=== PATIENT | female | born 1950 | race Caucasian/White ===

== ENCOUNTER 2016-10-09 20:21 | Emergency (ER) | payer MEDICARE ==
[2016-10-09] MEDS ORDERED: Acetaminophen TAB* 325 MG PO ONE (21:07)
[2016-10-09] MEDS ORDERED: NS 0.9% 1000 ML* 1,000 ML IV ONE (21:07)
--- NOTE | 2016-10-09 21:54 | RAD ---
INDICATION: Fever, chills, body aches. COMPARISON: August 19, 2016 TECHNIQUE: Dual energy PA and routine lateral views of the chest were obtained. REPORT: Tip of LEFT chest port at level of superior vena cava RIGHT atrial junction. Tip of RIGHT upper extremity PICC at level of superior vena cava. Elevated lung volumes with increased AP thoracic diameter. No alveolar consolidation, focal pulmonary lesion, pleural effusion, pneumothorax. Mild thoracic degenerative spondylosis. IMPRESSION: No evidence for pneumonia.
--- NOTE | 2016-10-09 22:05 | ED ---
Alondra Vallecillo Claudia, scribed for Ghassan Howard MD on 10/09/16 at 2109 . Complex/Multi-Sys Presentation - HPI Summary HPI Summary: 66 year old female presents to the ED with fever, chills and malaise after infusion earlier today. Pt denies ever having a similar reaction to the infusion and she has had about 12. Pt received infusions every week. She admits to fever 101F, chills, and malaise. Pt denies N/V/D. Pt has a UTD flu shot. Pt recievd infusions fue to gastroparesis. - History Of Current Complaint Chief Complaint: EDFever Time Seen by Provider: 10/09/16 21:02 Hx Obtained From: Patient Onset/Duration: Sudden Onset, Lasting Hours, Still Present Timing: Constant Associated Signs And Symptoms: Positive: Dysuria, Fever, Other - chills, mal. Negative: Nausea, Vomiting, Diarrhea - chills, maliase - Allergies/Home Medications Allergies/Adverse Reactions: Allergies Allergy/AdvReac Type Severity Reaction Status Date / Time Penicillins Allergy Severe Hives Verified 09/12/16 08:37 Adhesive Tape Allergy Mild See Comment Verified 09/12/16 08:37 [Tegaderm Dressing] Bee Venom Allergy Anaphylatic Verified 09/12/16 08:37 Shock Milnacipran [From Savella] AdvReac Severe See Comment Verified 09/12/16 08:37 Morphine AdvReac Intermediate Hallucinati Verified 09/12/16 08:37 ons Nortriptyline AdvReac Unknown Unknown Verified 09/12/16 08:37 Reaction Details Pregabalin [From Lyrica] AdvReac Altered Verified 09/12/16 08:37 Mental Status Tapentadol [From Nucynta] AdvReac Agitation Verified 09/12/16 08:37 bee stings Allergy Severe Anaphylatic Uncoded 09/12/16 08:37 Shock adhesives Allergy Intermediate Rash Uncoded 09/12/16 08:37 PMH/Surg Hx/FS Hx/Imm Hx Previously Healthy: Yes Endocrine/Hematology History: Denies: Hx Diabetes, Hx Anemia, Hx Unexplained Bleeding Cardiovascular History: Reports: Hx Cardiac Arrest - stopped breathing from IV pain medicine, Hx Hypercholesterolemia - not currently Denies: Hx Aneurysm, Hx Angina, Hx Angioplasty, Hx Auto Implanted Cardiovert Defib, Hx Cardiomegaly, Hx Congenital Heart Disease, Hx Congestive Heart Failure , Hx Coronary Artery Disease, Hx Deep Vein Thrombosis, Hx Embolism, Hx Hypotension, Hx Hypertension, Hx Myocardial Infarction, Hx Pacemaker/ICD, Hx Peripheral Vascular Disease, Hx Rheumatic Fever, Hx Syncope, Hx Valvular Heart Disease, Other Cardiovascular Problems/Disorders Respiratory History: Reports: Hx Sleep Apnea Denies: Hx Asthma, Hx Chronic Bronchitis, Hx Chronic Obstructive Pulmonary Disease (COPD), Hx Cystic Fibrosis, Hx Lung Cancer, Hx Pleural Effusion, Hx Pneumonia, Hx Pulmonary Edema, Hx Pulmonary Embolism, Hx Seasonal Allergies, Other Respiratory Problems/Disorders GI History: Reports: Hx Gastroesophageal Reflux Disease, Hx Gastrointestinal Bleed, Hx Hiatal Hernia, Hx Irritable Bowel, Hx Obstructive Bowel, Other GI Disorders - gastroparesis Denies: Hx Cirrhosis, Hx Crohn's Disease, Hx Diverticulosis, Hx Gall Bladder Disease, Hx Jaundice, Hx Ileostomy, Hx Pyloric Stenosis, Hx Ulcer History: Reports: Hx Kidney Infection - March 2013, Other Problems/ Disorders - frequent uti's Denies: Hx Dialysis, Hx Renal Disease Musculoskeletal History: Reports: Hx Back Problems, Hx Fibromyalgia, Hx Orthopedic Injury - mandible fracture Denies: Hx Arthritis, Hx Bursitis, Hx Congenital Bone Abnormalities, Hx Gout , Hx Osteoporosis, Hx Scoliosis, Hx Tendonitis, Other Musculoskeletal History Sensory History: Reports: Hx Cataracts - Surgery to remove cataracts, Hx Contacts or Glasses - for reading only Denies: Hx Eye Injury, Hx Eye Prosthesis, Hx Glaucoma, Hx Legally Blind, Hx Macular Degeneration, Hx Vision Problem, Hx Deafness, Hx Hearing Aid, Hx Hearing Problem, Other Sensory Impairments Opthamlomology History: Reports: Hx Cataracts - Surgery to remove cataracts, Hx Contacts or Glasses - for reading only Denies: Hx Eye Injury, Hx Eye Prosthesis, Hx Glaucoma, Hx Legally Blind, Hx Macular Degeneration, Hx Vision Problem, Other Sensory Impairments Neurological History: Reports: 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, Other Neuro Impairments/Disorders - autonomic neuropathy Denies: Hx Dementia, Hx Developmental Delay, Hx Headaches, Hx Migraine, Hx Nerve Disease, Hx Transient Ischemic Attacks (TIA) Psychiatric History: Reports: Hx Anxiety, Hx Depression, Hx Community Mental Health Tx Denies: Hx Panic Disorder - Cancer History Hx Chemotherapy: No Hx Radiation Therapy: No - Surgical History Surgery Procedure, Year, and Place: SEVERAL SX'S FOR SMALL BOWEL OBSTRUCTIONS, ADHESIONS, APPENDECTOMY; POWER PORT IN CHEST WALL -2009, replaced 2010 (still has); CATARACTS 2003; BIOPSY TEMPORAL ARTERY 2009; BREAST REDUCTION 2005; HYSTERECTOMY 1991;. SLAP[place]O OOPHERECTOMY 1999; CARDIAC CATHERIZATION 2008; URETHRAL SLING x3 AND RECTOCELE REPAIR 2007; COLECTOMY 11/2002 REVISION 02/2003; PANNUICULECTOMY WITH ABDOMINAL SCAR REVISION 2008; Placement of J-tube and lysis of adhesions Jun 12, 2016 @ [facility]; Late June [place] [place] Interstim II Implant S-3 nerve stimulation 04/2008;removal of stim (10/14); Dupytrons Contracture R hand ; Hernia Repair with [place]-Davi ; Abdominal scar revision 10/13; Hx Anesthesia Reactions: No - Immunization History Date of Tetanus Vaccine: unknown Date of Influenza Vaccine: 2013 Infectious Disease History: No Infectious Disease History: Denies: Hx Clostridium Difficile, Hx Hepatitis, Hx Human Immunodeficiency Virus (HIV), Hx of Known/Suspected MRSA, Hx Shingles, Hx Tuberculosis, Hx Known/ Suspected VRE, Hx Known/Suspected VRSA, History Other Infectious Disease, Traveled Outside the [place] in Last 30 Days - Family History Known Family History: Positive: Other - mother - PE Negative: Diabetes - Social History Occupation: Disabled Lives: With Family Alcohol Use: None Hx Substance Use: No Substance Use Type: Reports: None Substance Use Comment - Amount & Last Used: PT STARTED WITHDRAWAL FROM OPIATES IN 2013 Hx Tobacco Use: No Smoking Status (MU): Never Smoked Tobacco Have You Smoked in the Last Year: No Review of Systems Positive: Fever, Chills, Other - malaise Eyes: Negative ENT: Negative Cardiovascular: Negative Respiratory: Negative Gastrointestinal: Negative Negative: Vomiting, Diarrhea, Nausea Genitourinary: Negative Positive: dysuria Musculoskeletal: Negative Skin: Negative Neurological: Negative Psychological: Normal All Other Systems Reviewed And Are Negative: Yes Physical Exam Triage Information Reviewed: Yes Vital Signs On Initial Exam: Initial Vitals Temp Pulse Resp BP Pulse Ox 101.6 F 91 16 155/73 100 10/09/16 20:24 10/09/16 20:24 10/09/16 20:24 10/09/16 20:24 10/09/16 20:24 Vital Signs Reviewed: Yes Appearance: Positive: Well-Appearing, No Pain Distress Skin: Positive: Warm Head/Face: Positive: Normal Head/Face Inspection Eyes: Positive: FLORENCIO ENT: Positive: Hearing grossly normal, Pharynx normal Neck: Positive: Supple, Nontender Respiratory/Lung Sounds: Positive: Clear to Auscultation, Breath Sounds Present Cardiovascular: Positive: Normal Abdomen Description: Positive: Nontender, No Organomegaly, Soft Bowel Sounds: Positive: Present Musculoskeletal: Positive: Normal, Strength/ROM Intact Neurological: Positive: Normal Psychiatric: Positive: Normal Diagnostics - Vital Signs Vital Signs Temp Pulse Resp BP Pulse Ox 10/09/16 20:24 101.6 F 91 16 155/73 100 - Laboratory Result Diagrams: 10/09/16 21:40 10/09/16 21:40 Lab Statement: Any lab studies that have been ordered have been reviewed, and results considered in the medical decision making process. - Radiology CHEST XRAY Xray Interpretation: No Acute Changes - NO EVIDENCE FOR PNEUMONIA Radiology Interpretation Completed By: Radiologist Re-Evaluation - Re-Evaluation First Eval Change: Improved Complex Multi-Symp Course/Dx Assessment/Plan: Pt presents with fever and chills suddne onset today. After work-up with normal limits. Pt is agreeable with plan to be discharged home with follow-up with PCP this week. - Diagnoses Provider Diagnoses: Fever Discharge - Discharge Plan Condition: Stable Disposition: HOME Patient Education Materials: Fever in Adults (ED) Referrals: Mikala Calixto MD [Primary Care Provider] - 2 Days (Please follow-up. ) The documentation as recorded by the Alondra melchor Claudia accurately reflects the service I personally performed and the decisions made by , Ghassan Howard MD.
[2016-10-09] MEDS ORDERED: Ketorolac INJ* 30 MG/ML 1 ML VIAL IV PUSH ONE (22:07)
[2016-10-09 22:08] LABS: Hematocrit 32 % (35-47); Hemoglobin 10.4 g/dl (12.0-16.0); Mean Corpuscular HGB Conc 33 g/dl (31-36); Mean Corpuscular Hemoglobin 28 pg (27-31); Mean Corpuscular Volume 84 fL (80-97); Mean Platelet Volume 10 um3 (7.4-10.4); Red Blood Count 3.76 10^6/ul (4.0-5.4); Red Cell Distribution Width 14 % (10.5-15)
[2016-10-09 22:10] LABS: Comments Flag Yes; White Blood Count 3.3 10^3/ul (3.5-10.8)
[2016-10-09 22:11] LABS: Add Diff/Slide Review? Slide Review Added
[2016-10-09 22:26] LABS: Albumin 3.6 g/dL (3.2-5.2); BUN/Creatinine Ratio 20.5 (8-20); Calcium 8.9 mg/dL (8.6-10.3); EGFR African American 88.5 (>60); EGFR Non-African American 68.8 (>60); Globulin 4.6 g/dL (2-4); Total Bilirubin 0.3 mg/dL (0.2-1.0); Total Protein 8.2 g/dL (6.4-8.9)
[2016-10-09 23:04] LABS: Urine Bilirubin Negative (Negative); Urine Glucose 1+(50 mg/dL) (Negative); Urine Nitrite Negative (Negative)
[2016-10-10 00:19] VITALS: BP 110/67
--- NOTE | 2016-10-12 07:39 | ED ---
Progress - Progress Note Progress Note: pt seen on 10/09/2016 for fever - blood cx results have returned w/ neg MRSA, STAPH AERUES however she has findings of staph epidermis on a preliminary study - this is most likely a contaminant as spoke w/ pt and she is still tired but improving. Temps have been better, 99.7F at the highest. Explained results and that if she feels worse, needs to return to ED. Otherwise will f/u w/ PCP as directed. Re-Evaluation - Re-Evaluation First Eval Change: Improved Course/Dx - Diagnoses Provider Diagnoses: Fever
== END 2016-10-10 00:18 | disposition home or self-care (01) ==
LOC: ED 20:21
DX: R50.9 Fever, unspecified (principal); R30.0 Dysuria
CPT/HCPCS: 36415; 71020; 80053; 81003; 83605; 83735; 85025; 87040; 87077; 87150; 87186; 87205; 87502; 96374; 99284; A9270-GY; J1885

== ENCOUNTER 2016-10-10 13:32 | Emergency (ER) | payer MEDICARE ==
--- NOTE | 2016-10-10 18:34 | RAD ---
INDICATION: Fever. Positive blood culture. COMPARISON: October 09, 2016 TECHNIQUE: Dual energy PA and routine lateral views of the chest were obtained. REPORT: Unchanged RIGHT upper extremity PICC and LEFT chest port. Elevated lung volumes. Clear lungs and visualized pleural spaces. The caudal margin of the LEFT pleural space is incompletely included in the [id number]. The heart, pulmonary vasculature, and mediastinal contours are unremarkable. IMPRESSION: Stigmata of probable chronic obstructive pulmonary disease. No evidence for pneumonia.
[2016-10-10] MEDS ORDERED: Vancomycin(*) 1,000 MG in NS 0.9% 250 ML* 250 ML IVPB ONE (19:30)
--- NOTE | 2016-10-10 20:45 | ED ---
Valencia Vallecillo Rebecca, scribed for Clyde Bianchi MD on 10/10/16 at 1648 . HPI Febrile Illness - HPI Summary HPI Summary: Pt is a 66 y/o F who presents to ED after being referred by her PCP (Dr. Navarro) for positive blood cultures. Pt was evaluated by [facility] [place] last night p/ w fever, chills and fatigue that had been present for 2 days. Blood cultures were sent to the lab and she was d/c to home. Her PCP called this morning, informing pt that cultures are positive and to return to the ED immediately. Pt has a PICC line and a port. PICC is in place to provide nutrition due to inability to tolerate food per Os. Is not currently on a course of Abx. PMHx autoimmune disorder for which she receives IVIG transfusions. - History of Current Complaint Chief Complaint: EDGeneral Time Seen by Provider: 10/10/16 16:31 Hx Obtained From: Patient Onset/Duration: Started Days Ago - 2 days ago Time of Onset: 08:00 Pain Intensity: 7 Pain Scale Used: 0-10 Numeric Associated Signs and Symptoms: Chills, Other: - Fatigue, positive blood cultures - Additional Pertinent History Primary Care Physician: [id number] - Allergy/Home Medications Allergies/Adverse Reactions: Allergies Allergy/AdvReac Type Severity Reaction Status Date / Time Penicillins Allergy Severe Hives Verified 10/10/16 09:03 Adhesive Tape Allergy Mild See Comment Verified 10/10/16 09:03 [Tegaderm Dressing] Bee Venom Allergy Anaphylatic Verified 10/10/16 09:03 Shock Milnacipran [From Savella] AdvReac Severe See Comment Verified 10/10/16 09:03 Morphine AdvReac Intermediate Hallucinati Verified 10/10/16 09:03 ons Nortriptyline AdvReac Unknown Unknown Verified 10/10/16 09:03 Reaction Details Pregabalin [From Lyrica] AdvReac Altered Verified 10/10/16 09:03 Mental Status Tapentadol [From Nucynta] AdvReac Agitation Verified 10/10/16 09:03 bee stings Allergy Severe Anaphylatic Uncoded 09/12/16 08:37 Shock adhesives Allergy Intermediate Rash Uncoded 09/12/16 08:37 PMH/Surg Hx/FS Hx/Imm Hx Endocrine/Hematology History: Reports: Autoimmune Disease Denies: Hx Diabetes, Hx Anemia, Hx Unexplained Bleeding Cardiovascular History: Reports: Hx Cardiac Arrest - stopped breathing from IV pain medicine, Hx Hypercholesterolemia - not currently Denies: Hx Aneurysm, Hx Angina, Hx Angioplasty, Hx Auto Implanted Cardiovert Defib, Hx Cardiomegaly, Hx Congenital Heart Disease, Hx Congestive Heart Failure , Hx Coronary Artery Disease, Hx Deep Vein Thrombosis, Hx Embolism, Hx Hypotension, Hx Hypertension, Hx Myocardial Infarction, Hx Pacemaker/ICD, Hx Peripheral Vascular Disease, Hx Rheumatic Fever, Hx Syncope, Hx Valvular Heart Disease, Other Cardiovascular Problems/Disorders Respiratory History: Reports: Hx Sleep Apnea Denies: Hx Asthma, Hx Chronic Bronchitis, Hx Chronic Obstructive Pulmonary Disease (COPD), Hx Cystic Fibrosis, Hx Lung Cancer, Hx Pleural Effusion, Hx Pneumonia, Hx Pulmonary Edema, Hx Pulmonary Embolism, Hx Seasonal Allergies, Other Respiratory Problems/Disorders GI History: Reports: Hx Gastroesophageal Reflux Disease, Hx Gastrointestinal Bleed, Hx Hiatal Hernia, Hx Irritable Bowel, Hx Obstructive Bowel, Other GI Disorders - gastroparesis Denies: Hx Cirrhosis, Hx Crohn's Disease, Hx Diverticulosis, Hx Gall Bladder Disease, Hx Jaundice, Hx Ileostomy, Hx Pyloric Stenosis, Hx Ulcer History: Reports: Hx Kidney Infection - March 2013, Other Problems/ Disorders - frequent uti's Denies: Hx Dialysis, Hx Renal Disease Musculoskeletal History: Reports: Hx Back Problems, Hx Fibromyalgia, Hx Orthopedic Injury - mandible fracture Denies: Hx Arthritis, Hx Bursitis, Hx Congenital Bone Abnormalities, Hx Gout , Hx Osteoporosis, Hx Scoliosis, Hx Tendonitis, Other Musculoskeletal History Sensory History: Reports: Hx Cataracts - Surgery to remove cataracts, Hx Contacts or Glasses - for reading only Denies: Hx Eye Injury, Hx Eye Prosthesis, Hx Glaucoma, Hx Legally Blind, Hx Macular Degeneration, Hx Vision Problem, Hx Deafness, Hx Hearing Aid, Hx Hearing Problem, Other Sensory Impairments Opthamlomology History: Reports: Hx Cataracts - Surgery to remove cataracts, Hx Contacts or Glasses - for reading only Denies: Hx Eye Injury, Hx Eye Prosthesis, Hx Glaucoma, Hx Legally Blind, Hx Macular Degeneration, Hx Vision Problem, Other Sensory Impairments Neurological History: Reports: 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, Other Neuro Impairments/Disorders - autonomic neuropathy Denies: Hx Dementia, Hx Developmental Delay, Hx Headaches, Hx Migraine, Hx Nerve Disease, Hx Transient Ischemic Attacks (TIA) Psychiatric History: Reports: Hx Anxiety, Hx Depression, Hx Community Mental Health Tx Denies: Hx Panic Disorder - Cancer History Hx Chemotherapy: No Hx Radiation Therapy: No - Surgical History Surgery Procedure, Year, and Place: SEVERAL SX'S FOR SMALL BOWEL OBSTRUCTIONS, ADHESIONS, APPENDECTOMY; POWER PORT IN CHEST WALL -2009, replaced 2010 (still has); CATARACTS 2003; BIOPSY TEMPORAL ARTERY 2009; BREAST REDUCTION 2005; HYSTERECTOMY 1991;. SLAP[place]O OOPHERECTOMY 1999; CARDIAC CATHERIZATION 2008; URETHRAL SLING x3 AND RECTOCELE REPAIR 2007; COLECTOMY 11/2002 REVISION 02/2003; PANNUICULECTOMY WITH ABDOMINAL SCAR REVISION 2008; Placement of J-tube and lysis of adhesions Jun 12, 2016 @ [facility]; Late June J-tube infection and removal June 2016, @[facility] [place]; Interstim II Implant S-3 nerve stimulation 04/2008;removal of stim (10/14); Dupytrons Contracture R hand ; Hernia Repair with [place]-Davi ; Abdominal scar revision 10/13; Hx Anesthesia Reactions: No - Immunization History Date of Tetanus Vaccine: unknown Date of Influenza Vaccine: 2013 Infectious Disease History: No Infectious Disease History: Denies: Hx Clostridium Difficile, Hx Hepatitis, Hx Human Immunodeficiency Virus (HIV), Hx of Known/Suspected MRSA, Hx Shingles, Hx Tuberculosis, Hx Known/ Suspected VRE, Hx Known/Suspected VRSA, History Other Infectious Disease, Traveled Outside the [place] in Last 30 Days - Family History Known Family History: Positive: Other - mother - PE Negative: Diabetes - Social History Alcohol Use: None Hx Substance Use: No Substance Use Type: Reports: None Substance Use Comment - Amount & Last Used: PT STARTED WITHDRAWAL FROM OPIATES IN 2013 Hx Tobacco Use: No Smoking Status (MU): Never Smoked Tobacco Have You Smoked in the Last Year: No Review of Systems Positive: Fever, Chills, Fatigue, Other - Positive blood culture results Eyes: Negative Cardiovascular: Negative Respiratory: Negative Gastrointestinal: Negative Genitourinary: Negative Musculoskeletal: Negative Skin: Negative Neurological: Negative Psychological: Normal All Other Systems Reviewed And Are Negative: Yes Physical Exam - Summary Physical Exam Summary: VITAL SIGNS: Reviewed. GENERAL: Patient is a well developed and nourished female who is lying comfortable in the stretcher. Patient is not in any acute respiratory distress. HEAD AND FACE: No signs of trauma. No ecchymosis, hematomas or skull depressions. No sinus tenderness. EYES: PERRLA, EOMI x 2, No injected conjunctiva, no nystagmus. EARS: Hearing grossly intact. Ear canals and tympanic membranes are within normal limits. MOUTH: Oropharynx within normal limits. NECK: Supple, trachea is midline, no adenopathy, no JVD, no carotid bruit, no c- spine tenderness, neck with full ROM. CHEST: Symmetric, no tenderness at palpation LUNGS: Clear to auscultation bilaterally. No wheezing or crackles. CVS: Regular rate and rhythm, S1 and S2 present, no murmurs or gallops appreciated. ABDOMEN: Soft, non-tender. No signs of distention. No rebound no guarding, and no masses palpated. Bowel sounds are normal. EXTREMITIES: FROM in all major joints, no edema, no cyanosis or clubbing. NEURO: Alert and oriented x 3. No acute neurological deficits. Speech is normal and follows commands. SKIN: Dry and warm Triage Information Reviewed: Yes Vital Signs On Initial Exam: Initial Vitals Temp Pulse Resp BP Pulse Ox 97.9 F 92 16 141/63 100 10/10/16 13:34 10/10/16 13:34 10/10/16 13:34 10/10/16 13:34 10/10/16 13:34 Vital Signs Reviewed: Yes Diagnostics - Vital Signs Vital Signs Temp Pulse Resp BP Pulse Ox 10/10/16 13:34 97.9 F 92 16 141/63 100 - Laboratory Lab Statement: Any lab studies that have been ordered have been reviewed, and results considered in the medical decision making process. - Radiology CXR Radiology Interpretation Completed By: Radiologist - Stigmata of probable chronic obstructive pulmonary disease. No evidence for pneumonia. Re-Evaluation - Re-Evaluation First Eval Re-Evaluation Time: 18:30 Change: Unchanged Comment: Pt is unsure why she is in ED and why she was sent by her PCP. Second Eval Re-Evaluation Time: 19:42 Change: Worse Comment: Pt is crying and upset that she is still in the ED and that it has been so difficult to contact her PCP to figure out why she was sent. Will receive IV Abx and be d/c to home. Course/Dx - Course Assessment/Plan: 66 y/o F who presents to ED after being asked by PCP to come to ED due to a positive blood culture test. She was seen in ED last night with fevers, chills, malaise and weakness. Blood tests werenegative including flu swab and today blood cultures were positive. The pt has 2 PICC lines, one in each upper extremity. Therefore, the PCP suspects infection. Test results show that the aerobic and anaerobic culture bottles preliminary results are positive for gram positive cocci and that the final report is negative for MRSA and negative for S. aureus. I discussed the case with microbiology and they report that likely, this positive culture is a contaminant, however because pt has a port, they are unsure if this is a contaminant or true infection. I spoke with Dr. Serra and he recommends to consult Dr. Briones. However, Dr. Briones is not lifestyle consultant today. Therefore I decided to give 1 dose of vancomycin to pt and d/ c pt to home with follow up with PCP for the final blood culture report. I also discussed the case with Dr. Navarro and she agrees with the plan. She will call microbiology tomorrow for final report and follow up with proper management. The pt is hemodynamically stable and AxOx3. I discussed all my findings and test results with the patient. Patient understands and agrees. Patient was instructed to return to the emergency room immediately if any of the symptoms return or worsens. Patient understands and agrees. Plan of care was discussed with the patient and patient understands and agrees with the plan of care. All questions were answered at patient satisfaction. There were no further complaints or concerns. Patient was instructed to follow up with primary care physician within 3 to 5 days. Patient is hemodynamically stable. Patient is alert and oriented x 3. No acute neurological deficits. - Diagnoses Provider Diagnoses: Positive blood culture - Provider Notifications Discussed Care Of Patient With: Microbiologist in [facility] [place] lab at 1735 who stated that the MRSA and strep aureus are both negative and that results may have been a contaminant or another type of strep. Definite results will be in tomorrow. Dr. Serra at 1805 who stated that it was out of his jurisdiction. Dr. Navarro at 1946 who agrres that pt should be d/c home and will be given one dose of Abx here and will have results tomorrow. Discharge - Discharge Plan Condition: Stable Disposition: HOME Referrals: Mikala Navarro MD [Primary Care Provider] - The documentation as recorded by the Valencia melchor Rebecca accurately reflects the service I personally performed and the decisions made by me, Clyde Bianchi MD.
[2016-10-10] MEDS ORDERED: HYDROmorphone INJ* 1 MG/ML CARPUJECT SYRINGE IV SLOW PU ONE (21:15)
[2016-10-10 21:28] VITALS: BP 130/74
== END 2016-10-10 21:27 | disposition home or self-care (01) ==
LOC: ED 13:32
DX: R53.83 Other fatigue (principal); R50.9 Fever, unspecified; R78.81 Bacteremia
CPT/HCPCS: 71020; 96361; 96374; 99282; J1170; J3370

== ENCOUNTER 2016-10-20 09:41 | Emergency (ER) | payer MEDICARE ==
[2016-10-20] MEDS ORDERED: HYDROmorphone INJ* 1 MG/ML CARPUJECT SYRINGE IV ONE (10:36)
[2016-10-20 11:10] LABS: Hematocrit 31 % (35-47); Hemoglobin 10.2 g/dl (12.0-16.0); Mean Corpuscular HGB Conc 33 g/dl (31-36); Mean Corpuscular Hemoglobin 28 pg (27-31); Mean Corpuscular Volume 83 fL (80-97); Mean Platelet Volume 10 um3 (7.4-10.4); Red Blood Count 3.71 10^6/ul (4.0-5.4); Red Cell Distribution Width 13 % (10.5-15); White Blood Count 6.1 10^3/ul (3.5-10.8)
[2016-10-20 11:25] LABS: Albumin 3.6 g/dL (3.2-5.2); BUN/Creatinine Ratio 26.2 (8-20); C Reactive Protein 19.46 mg/L (< 5.00); Calcium 8.7 mg/dL (8.6-10.3); EGFR African American 117.3 (>60); EGFR Non-African American 91.2 (>60); Globulin 4.1 g/dL (2-4); Potassium 4.2 mmol/L (3.5-5.0); Total Bilirubin 0.3 mg/dL (0.2-1.0); Total Protein 7.7 g/dL (6.4-8.9)
[2016-10-20 11:26] LABS: Add Diff/Slide Review? Slide Review Added; Comments Flag Yes
--- NOTE | 2016-10-20 11:45 | RAD ---
INDICATION: Chest pain COMPARISON: October 10, 2016 TECHNIQUE: An AP portable view obtained at 1135 hours is submitted. FINDINGS: Bones/Soft Tissues: There are no acute bony findings. There is a left sided PowerPort catheter Cardiomediastinal: The cardiomediastinal silhouette is normal. Lungs: There are no infiltrates. Pleura: There are no pleural effusions. Other: None IMPRESSION: NO ACTIVE DISEASE
[2016-10-20] MEDS ORDERED: Iohexol 350* (CONTRAST) 500 ML MDV IV ONE (12:00)
--- NOTE | 2016-10-20 13:04 | RAD ---
INDICATION: Chest pain. Short of breath. Evaluate for pulmonary embolus. COMPARISON: Chest x-ray October 20, 2016; CTA chest January 15, 2011 TECHNIQUE: Axial source images were obtained from the thoracic inlet to the hemidiaphragms following administration of [address] angiographic technique was utilized. Coronal and sagittal reconstructed images were acquired. CHEST FINDINGS: Neck/thyroid: The visualized neck to include the thyroid appear normal. Chest wall: There are no acute abnormalities of the bony thorax or chest wall. There is no supraclavicular, infraclavicular, or axillary lymphadenopathy. There is a left-sided Akchay-y-Auic catheter. Lungs : There are no pulmonary parenchymal masses or infiltrates. The pulmonary interstitium appears normal. There are no endobronchial lesions. Cardiomediastinal structures: There is no CT evidence of acute pulmonary embolic disease. The heart is normal in size. There is no pericardial effusion. There is no evidence of aortic aneurysm or dissection. There is no mediastinal or hilar adenopathy. The esophagus appears normal. Pleura : There are no pleural-based masses or effusions. Other: None. IMPRESSION: 1. NO CT EVIDENCE OF ACUTE PULMONARY EMBOLIC DISEASE 2. THERE ARE SUBCENTIMETER PARENCHYMAL NODULES BILATERALLY. NODULES IN LUNG BASES IDENTIFIED ON REFERENCE IMAGES 33/59 AND 40/59 IN THE RIGHT LEFT LUNG BASE IS RESPECTIVELY. LARGER. THE SIGNIFICANCE IS UNCERTAIN. SUGGEST [address] NONCONTRAST FOLLOW UP CT IMAGING
[2016-10-20 13:44] VITALS: BP 132/67
--- NOTE | 2016-10-20 15:33 | ED ---
Mere Vallecillo Anna, scribed for Felipe Joel MD on 10/20/16 at 1028 . Upper Extremity Pain - HPI Summary HPI Summary: Patient is a 66 y/o female coming to [facility] presenting with pain under right scapula which began one week ago and worsened three days ago. Per triage notes, the patient describes the severity of the pain as 10/10. Also experiences some fever and hesitancy with urination. Abdominal pain at baseline. Few BM. Denies CP, acute abdominal pain, edema, or cough. The pain is exacerbated by movement and deep breaths. Pain is not alleviated by Dilaudid. She has a PICC line on the right side and IV for autoimmune disease. TPN in PICC line has been primary nutrition for four months. She receives IVIG through port weekly. Denies HTN, DM , AR, CAD, or kidney problems. Has weekly blood work here sent to PCP Dr. Calixto. IF THERE IS ONE, PLEASE SEE DICTATION BY DR. JOEL FOR FURTHER INFORMATION. - History of Current Complaint Chief Complaint: EDShoulderClavicleInj Stated Complaint: RT clavicle PAIN Time Seen by Provider: 10/20/16 10:01 Hx Obtained From: Patient Onset/Duration: Started Weeks Ago - 1 Timing: Constant Severity Initially: Moderate Severity Currently: Moderate Pain Location: Shoulder Aggravating Factor(s): Movement, Other - Deep breaths Associated Signs & Symptoms: Positive: Fever, Other - Hesitancy with urination. Negative: Chest Pain - Allergies/Home Medications Allergies/Adverse Reactions: Allergies Allergy/AdvReac Type Severity Reaction Status Date / Time Penicillins Allergy Severe Hives Verified 10/20/16 10:13 Adhesive Tape Allergy Mild See Comment Verified 10/20/16 10:13 [Tegaderm Dressing] Bee Venom Allergy Anaphylatic Verified 10/20/16 10:13 Shock Milnacipran [From Savella] AdvReac Severe See Comment Verified 10/20/16 10:13 Morphine AdvReac Intermediate Hallucinati Verified 10/20/16 10:13 ons Nortriptyline AdvReac Unknown Unknown Verified 10/20/16 10:13 Reaction Details Pregabalin [From Lyrica] AdvReac Altered Verified 10/20/16 10:13 Mental Status Tapentadol [From Nucynta] AdvReac Agitation Verified 10/20/16 10:13 bee stings Allergy Severe Anaphylatic Uncoded 10/20/16 10:13 Shock adhesives Allergy Intermediate Rash Uncoded 10/20/16 10:13 PMH/Surg Hx/FS Hx/Imm Hx Previously Healthy: No Endocrine/Hematology History: Denies: Hx Diabetes, Hx Anemia, Hx Unexplained Bleeding Cardiovascular History: Reports: Hx Cardiac Arrest - stopped breathing from IV pain medicine, Hx Hypercholesterolemia - not currently Denies: Hx Aneurysm, Hx Angina, Hx Angioplasty, Hx Auto Implanted Cardiovert Defib, Hx Cardiomegaly, Hx Congenital Heart Disease, Hx Congestive Heart Failure , Hx Coronary Artery Disease, Hx Deep Vein Thrombosis, Hx Embolism, Hx Hypotension, Hx Hypertension, Hx Myocardial Infarction, Hx Pacemaker/ICD, Hx Peripheral Vascular Disease, Hx Rheumatic Fever, Hx Syncope, Hx Valvular Heart Disease, Other Cardiovascular Problems/Disorders Respiratory History: Reports: Hx Sleep Apnea Denies: Hx Asthma, Hx Chronic Bronchitis, Hx Chronic Obstructive Pulmonary Disease (COPD), Hx Cystic Fibrosis, Hx Lung Cancer, Hx Pleural Effusion, Hx Pneumonia, Hx Pulmonary Edema, Hx Pulmonary Embolism, Hx Seasonal Allergies, Other Respiratory Problems/Disorders GI History: Reports: Hx Gastroesophageal Reflux Disease, Hx Gastrointestinal Bleed, Hx Hiatal Hernia, Hx Irritable Bowel, Hx Obstructive Bowel, Other GI Disorders - gastroparesis Denies: Hx Cirrhosis, Hx Crohn's Disease, Hx Diverticulosis, Hx Gall Bladder Disease, Hx Jaundice, Hx Ileostomy, Hx Pyloric Stenosis, Hx Ulcer History: Reports: Hx Kidney Infection - March 2013, Other Problems/ Disorders - frequent uti's Denies: Hx Dialysis, Hx Renal Disease Musculoskeletal History: Reports: Hx Back Problems, Hx Fibromyalgia, Hx Orthopedic Injury - mandible fracture Denies: Hx Arthritis, Hx Bursitis, Hx Congenital Bone Abnormalities, Hx Gout , Hx Osteoporosis, Hx Scoliosis, Hx Tendonitis, Other Musculoskeletal History Sensory History: Reports: Hx Cataracts - Surgery to remove cataracts, Hx Contacts or Glasses - for reading only Denies: Hx Eye Injury, Hx Eye Prosthesis, Hx Glaucoma, Hx Legally Blind, Hx Macular Degeneration, Hx Vision Problem, Hx Deafness, Hx Hearing Aid, Hx Hearing Problem, Other Sensory Impairments Opthamlomology History: Reports: Hx Cataracts - Surgery to remove cataracts, Hx Contacts or Glasses - for reading only Denies: Hx Eye Injury, Hx Eye Prosthesis, Hx Glaucoma, Hx Legally Blind, Hx Macular Degeneration, Hx Vision Problem, Other Sensory Impairments Neurological History: Reports: 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, Other Neuro Impairments/Disorders - autonomic neuropathy Denies: Hx Dementia, Hx Developmental Delay, Hx Headaches, Hx Migraine, Hx Nerve Disease, Hx Transient Ischemic Attacks (TIA) Psychiatric History: Reports: Hx Anxiety, Hx Depression, Hx Community Mental Health Tx Denies: Hx Panic Disorder - Cancer History Hx Chemotherapy: No Hx Radiation Therapy: No - Surgical History Surgery Procedure, Year, and Place: SEVERAL SX'S FOR SMALL BOWEL OBSTRUCTIONS, ADHESIONS, APPENDECTOMY; POWER PORT IN CHEST WALL -2009, replaced 2010 (still has); CATARACTS 2003; BIOPSY TEMPORAL ARTERY 2009; BREAST REDUCTION 2005; HYSTERECTOMY 1991;. SLAP[place]O OOPHERECTOMY 1999; CARDIAC CATHERIZATION 2008; URETHRAL SLING x3 AND RECTOCELE REPAIR 2007; COLECTOMY 11/2002 REVISION 02/2003; PANNUICULECTOMY WITH ABDOMINAL SCAR REVISION 2008; Placement of J-tube and lysis of adhesions Jun 12, 2016 @ [facility]; Late June J-tube infection and removal June 2016, @[facility] [place]; Interstim II Implant S-3 nerve stimulation 04/2008;removal of stim (10/14); Dupytrons Contracture R hand ; Hernia Repair with [place]-Davi ; Abdominal scar revision 10/13; Hx Anesthesia Reactions: No - Immunization History Date of Tetanus Vaccine: unknown Date of Influenza Vaccine: 2013 Infectious Disease History: No Infectious Disease History: Denies: Hx Clostridium Difficile, Hx Hepatitis, Hx Human Immunodeficiency Virus (HIV), Hx of Known/Suspected MRSA, Hx Shingles, Hx Tuberculosis, Hx Known/ Suspected VRE, Hx Known/Suspected VRSA, History Other Infectious Disease, Traveled Outside the [place] in Last 30 Days - Family History Known Family History: Positive: Other - mother - PE Negative: Diabetes - Social History Lives: With Family Alcohol Use: None Hx Substance Use: No Substance Use Type: Reports: None Substance Use Comment - Amount & Last Used: PT STARTED WITHDRAWAL FROM OPIATES IN 2013 Hx Tobacco Use: No Smoking Status (MU): Never Smoked Tobacco Have You Smoked in the Last Year: No Review of Systems Positive: Fever Eyes: Negative ENT: Negative Cardiovascular: Negative Respiratory: Negative Positive: Abdominal Pain - baseline, no acute pain Positive: other - hesitancy with urination, few BM Positive: Arthralgia Skin: Negative Neurological: Negative Psychological: Normal All Other Systems Reviewed And Are Negative: Yes - Comments Additional Review of Systems Comments: IF THERE IS ONE, PLEASE SEE DICTATION BY DR. JOEL FOR FURTHER INFORMATION. Physical Exam - Summary Physical Exam Summary: GENERAL: Awake, alert, oriented, no acute distress, very pleasant HEENT: Head is normocephalic, atraumatic, anicteric sclera, pink conjunctiva, mucous membranes moist, no erythema, no discharge, no lesions, neck is supple, trachea is midline, no JVD CARDIAC: Regular rate and rhythm, S1, S2, no rub, no murmur, no gallop, 2+ radial and pedal pulses bilaterally RESPIRATORY: Clear to auscultation bilaterally with no rales, rhonchi, or wheezes, non-tender ABDOMEN: Mild diffuse abd tenderness with no rebound, guarding and reports that is normal for her. EXTREMITIES: No edema. Tender with passive movement of the scapula but not shoulder. Tender to palpation over scapula. PICC line in right arm SKIN: Warm, dry NEUROLOGICAL: Mood is appropriate. IF THERE IS ONE, PLEASE SEE DICTATION BY DR. JOEL FOR FURTHER INFORMATION. Triage Information Reviewed: Yes Vital Signs On Initial Exam: Initial Vitals Temp Pulse Resp BP Pulse Ox 99.8 F 87 16 131/73 100 10/20/16 09:44 10/20/16 09:44 10/20/16 09:44 10/20/16 09:44 10/20/16 09:44 Vital Signs Reviewed: Yes - Thomas Coma Scale Coma Scale Total: 15 Diagnostics - Vital Signs Vital Signs Temp Pulse Resp BP Pulse Ox 10/20/16 09:44 99.8 F 87 16 131/73 100 - Laboratory Lab Results: Lab Results 10/20/16 10/20/16 10/20/16 Range/Units 10:55 10:55 10:55 WBC 6.1 (3.5-10.8) 10^3/ul RBC 3.71 L (4.0-5.4) 10^6/ul Hgb 10.2 L (12.0-16.0) g/dl Hct 31 L (35-47) % MCV 83 (80-97) fL MCH 28 (27-31) pg MCHC 33 (31-36) g/dl RDW 13 (10.5-15) % Plt Count 158 (150-450) 10^3/ul MPV 10 (7.4-10.4) um3 Neut % (Auto) 78.3 (38-83) % Lymph % (Auto) 9.6 L (25-47) % Spencer % (Auto) 8.5 (1-9) % Eos % (Auto) 0.7 (0-6) % Baso % (Auto) 2.9 H (0-2) % Absolute Neuts (auto) 4.8 (1.5-7.7) 10^3/ul Absolute Lymphs (auto) 0.6 L (1.0-4.8) 10^3/ul Absolute Monos (auto) 0.5 (0-0.8) 10^3/ul Absolute Eos (auto) 0 (0-0.6) 10^3/ul Absolute Basos (auto) 0.2 (0-0.2) 10^3/ul Absolute Nucleated RBC 0 10^3/ul Nucleated RBC % 0 INR (Anticoag Therapy) 1.50 H (0.89-1.11) APTT > 240.0 H* (26.0-36.3) seconds Sodium 130 L (133-145) mmol/L Potassium 4.2 (3.5-5.0) mmol/L Chloride 100 L (101-111) mmol/L Carbon Dioxide 24 (22-32) mmol/L Anion Gap 6 (2-11) mmol/L BUN 17 (6-24) mg/dL Creatinine 0.65 (0.51-0.95) mg/dL Est GFR ( Amer) 117.3 (>60) Est GFR (Non-Af Amer) 91.2 (>60) BUN/Creatinine Ratio 26.2 H (8-20) Glucose 99 (70-100) mg/dL Lactic Acid (0.5-2.0) mmol/L Calcium 8.7 (8.6-10.3) mg/dL Total Bilirubin 0.30 (0.2-1.0) mg/dL AST 22 (13-39) U/L ALT 11 (7-52) U/L Alkaline Phosphatase 46 (34-104) U/L Total Creatine Kinase 55 (10-223) U/L CK-MB (CK-2) 1.7 (0.6-6.3) ng/mL Myoglobin 17.0 (14.3-65.8) ng/mL Troponin I 0.00 (<0.04) ng/mL C-Reactive Protein 19.46 H (< 5.00) mg/L B-Natriuretic Peptide ( - 100) pg/mL Total Protein 7.7 (6.4-8.9) g/dL Albumin 3.6 (3.2-5.2) g/dL Globulin 4.1 H (2-4) g/dL Albumin/Globulin Ratio 0.9 L (1-3) 10/20/16 10/20/16 Range/Units 10:55 10:55 WBC (3.5-10.8) 10^3/ul RBC (4.0-5.4) 10^6/ul Hgb (12.0-16.0) g/dl Hct (35-47) % MCV (80-97) fL MCH (27-31) pg MCHC (31-36) g/dl RDW (10.5-15) % Plt Count (150-450) 10^3/ul MPV (7.4-10.4) um3 Neut % (Auto) (38-83) % Lymph % (Auto) (25-47) % Spencer % (Auto) (1-9) % Eos % (Auto) (0-6) % Baso % (Auto) (0-2) % Absolute Neuts (auto) (1.5-7.7) 10^3/ul Absolute Lymphs (auto) (1.0-4.8) 10^3/ul Absolute Monos (auto) (0-0.8) 10^3/ul Absolute Eos (auto) (0-0.6) 10^3/ul Absolute Basos (auto) (0-0.2) 10^3/ul Absolute Nucleated RBC 10^3/ul Nucleated RBC % INR (Anticoag Therapy) (0.89-1.11) APTT (26.0-36.3) seconds Sodium (133-145) mmol/L Potassium (3.5-5.0) mmol/L Chloride (101-111) mmol/L Carbon Dioxide (22-32) mmol/L Anion Gap (2-11) mmol/L BUN (6-24) mg/dL Creatinine (0.51-0.95) mg/dL Est GFR ( Amer) (>60) Est GFR (Non-Af Amer) (>60) BUN/Creatinine Ratio (8-20) Glucose (70-100) mg/dL Lactic Acid 0.7 (0.5-2.0) mmol/L Calcium (8.6-10.3) mg/dL Total Bilirubin (0.2-1.0) mg/dL AST (13-39) U/L ALT (7-52) U/L Alkaline Phosphatase (34-104) U/L Total Creatine Kinase (10-223) U/L CK-MB (CK-2) (0.6-6.3) ng/mL Myoglobin (14.3-65.8) ng/mL Troponin I (<0.04) ng/mL C-Reactive Protein (< 5.00) mg/L B-Natriuretic Peptide 87 ( - 100) pg/mL Total Protein (6.4-8.9) g/dL Albumin (3.2-5.2) g/dL Globulin (2-4) g/dL Albumin/Globulin Ratio (1-3) Result Diagrams: 10/20/16 10:55 10/20/16 10:55 Lab Statement: Any lab studies that have been ordered have been reviewed, and results considered in the medical decision making process. - Radiology CXR Xray Interpretation: No Acute Changes Radiology Interpretation Completed By: Radiologist - CT Chest/Thorax CTA CT Interpretation: No Acute Changes CT Interpretation Completed By: Radiologist - IMPRESSION: 1. NO CT EVIDENCE OF ACUTE PULMONARY EMBOLIC DISEASE 2. THERE ARE SUBCENTIMETER PARENCHYMAL NODULES BILATERALLY. NODULES IN LUNG BASES IDENTIFIED ON REFERENCE IMAGES 33/59 AND 40/59 IN THE RIGHT LEFT LUNG BASE IS RESPECTIVELY LARGER. THE SIGNIFICANCE IS UNCERTAIN. SUGGEST [address]CONTRAST FOLLOW UP CT IMAGING - EKG 11:16 Cardiac Rate: NL - 80 bpm EKG Rhythm: Sinus Rhythm EKG Interpretation: NSR, no acute ischemia Re-Evaluation - Re-Evaluation First Eval Re-Evaluation Time: 13:18 Comment: No pain with passive range of motion. Discussed need to follow up. Course/Dx - Course Course Of Treatment: 66 year old with several days of right scapular pain, no pain in shoulder joint, no pain with passive rom, no erythema, no crepitus, no abd tenderness. CtA no pe, no pneumonia, + nodules requiring [address] , discussd importance with patient and to rule out cancer. Follow up pmd , returnfor fever chills chest pain worsening condition or any other concerns - Diagnoses Provider Diagnoses: Lung nodule < 6cm on CT - Physician Notifications Discussed Care Of Patient With: Dr. Newell (hospitalist) at 12:12. Agrees to sign off on CT for patient. Discharge - Discharge Plan Condition: Stable Disposition: ADMITTED TO [facility] Patient Education Materials: Pulmonary Nodules (ED), Shoulder Pain (ED) Referrals: Mikala Calixto MD [Primary Care Provider] - Additional Instructions: FOLLOW UP WITH PRIMARY CARE PROVIDER WITHIN 24 HOURS. PLEASE RETURN TO THE EMERGENCY DEPARTMENT FOR NAUSEA, VOMITING, FEVER, CHILLS, PHOTOPHOBIA, CHEST PAIN, OR IF SYMPTOMS WORSEN. PER RESULTS OF CT, RETURN FOR FOLLOW UP CT SCAN IN 3 MONTHS TO RULE OUT CANCER. The documentation as recorded by the Mere melchor Anna accurately reflects the service I personally performed and the decisions made by , Felipe Joel MD.
== END 2016-10-20 13:42 | disposition short-term general hospital (02) ==
LOC: ED 09:41
DX: R91.1 Solitary pulmonary nodule (principal); Z86.74 Personal history of sudden cardiac arrest; F41.9 Anxiety disorder, unspecified; F32.9 Major depressive disorder, single episode, unspecified; Z86.73 Personal history of transient ischemic attack (TIA), and cerebral infarction without residual deficits; Z88.0 Allergy status to penicillin; Z88.5 Allergy status to narcotic agent
CPT/HCPCS: 36415; 71010; 71275; 80053; 82550; 82553; 83605; 83874; 83880; 84484; 85025; 85610; 85730; 86140; 87040; 87077; 87150; 87186; 87205; 93005; 96374; 99282; J1170; Q9967

== ENCOUNTER 2016-10-22 09:52 | Emergency (ER) | payer MEDICARE ==
[2016-10-22 10:12] VITALS: BP 127/68
[2016-10-22] MEDS ORDERED: HYDROcodone/ACETAMIN 5-325 MG* 1 TAB PO ONE (13:17)
--- NOTE | 2016-10-22 14:51 | RAD ---
INDICATION: Pain and swelling. COMPARISON: None TECHNIQUE: Duplex interrogation of the Lowerextremity was performed. FINDINGS: Deep veins: The visualized internal jugular, visualized subclavian, axillary, brachial, basilic, cephalic, radial, and ulnar are patent. There is normal compressibility, augmentation, and phasic flow. Superficial veins: There are no findings of superficial thrombophlebitis. Soft tissues:There are no soft tissue abnormalities. IMPRESSION: Normal examination. No evidence of deep venous thrombosis
--- NOTE | 2016-10-22 15:23 | ED ---
Sj Vallecillo Billy, scribed for Clyde Bianchi MD on 10/22/16 at 1309 . Upper Extremity Pain - HPI Summary HPI Summary: Patient is a 66 year-old female coming to [facility] presenting with constant right shoulder and arm pain today. She states that she fell down the stairs and partially pulled out her PICC line. Furthermore, she states that her PCP referred her to the ED to rule out a blood clot in her RUE. She has no other complaints at this time. - History of Current Complaint Chief Complaint: Doni Stated Complaint: FALL / PART OF PIC LINE CAME OUT / BACK PAIN Time Seen by Provider: 10/22/16 12:40 Hx Obtained From: Patient Onset/Duration: Started Hours Ago Timing: Constant Severity Initially: Moderate Severity Currently: Moderate Pain Location: Shoulder, Arm Aggravating Factor(s): Nothing Alleviating Factor(s): Nothing - Allergies/Home Medications Allergies/Adverse Reactions: Allergies Allergy/AdvReac Type Severity Reaction Status Date / Time Penicillins Allergy Severe Hives Verified 10/22/16 10:02 Adhesive Tape Allergy Mild See Comment Verified 10/22/16 10:02 [Tegaderm Dressing] Bee Venom Allergy Anaphylatic Verified 10/22/16 10:02 Shock Milnacipran [From Savella] AdvReac Severe See Comment Verified 10/22/16 10:02 Morphine AdvReac Intermediate Hallucinati Verified 10/22/16 10:02 ons Nortriptyline AdvReac Unknown Unknown Verified 10/22/16 10:02 Reaction Details Pregabalin [From Lyrica] AdvReac Altered Verified 10/22/16 10:02 Mental Status Tapentadol [From Nucynta] AdvReac Agitation Verified 10/22/16 10:02 bee stings Allergy Severe Anaphylatic Uncoded 10/22/16 10:02 Shock adhesives Allergy Intermediate Rash Uncoded 10/22/16 10:02 PMH/Surg Hx/FS Hx/Imm Hx Endocrine/Hematology History: Denies: Hx Diabetes, Hx Anemia, Hx Unexplained Bleeding Cardiovascular History: Reports: Hx Cardiac Arrest - stopped breathing from IV pain medicine, Hx Hypercholesterolemia - not currently Denies: Hx Aneurysm, Hx Angina, Hx Angioplasty, Hx Auto Implanted Cardiovert Defib, Hx Cardiomegaly, Hx Congenital Heart Disease, Hx Congestive Heart Failure , Hx Coronary Artery Disease, Hx Deep Vein Thrombosis, Hx Embolism, Hx Hypotension, Hx Hypertension, Hx Myocardial Infarction, Hx Pacemaker/ICD, Hx Peripheral Vascular Disease, Hx Rheumatic Fever, Hx Syncope, Hx Valvular Heart Disease, Other Cardiovascular Problems/Disorders Respiratory History: Reports: Hx Sleep Apnea Denies: Hx Asthma, Hx Chronic Bronchitis, Hx Chronic Obstructive Pulmonary Disease (COPD), Hx Cystic Fibrosis, Hx Lung Cancer, Hx Pleural Effusion, Hx Pneumonia, Hx Pulmonary Edema, Hx Pulmonary Embolism, Hx Seasonal Allergies, Other Respiratory Problems/Disorders GI History: Reports: Hx Gastroesophageal Reflux Disease, Hx Gastrointestinal Bleed, Hx Hiatal Hernia, Hx Irritable Bowel, Hx Obstructive Bowel, Other GI Disorders - gastroparesis Denies: Hx Cirrhosis, Hx Crohn's Disease, Hx Diverticulosis, Hx Gall Bladder Disease, Hx Jaundice, Hx Ileostomy, Hx Pyloric Stenosis, Hx Ulcer History: Reports: Hx Kidney Infection - March 2013, Other Problems/ Disorders - frequent uti's Denies: Hx Dialysis, Hx Renal Disease Musculoskeletal History: Reports: Hx Back Problems, Hx Fibromyalgia, Hx Orthopedic Injury - mandible fracture Denies: Hx Arthritis, Hx Bursitis, Hx Congenital Bone Abnormalities, Hx Gout , Hx Osteoporosis, Hx Scoliosis, Hx Tendonitis, Other Musculoskeletal History Sensory History: Reports: Hx Cataracts - Surgery to remove cataracts, Hx Contacts or Glasses - for reading only Denies: Hx Eye Injury, Hx Eye Prosthesis, Hx Glaucoma, Hx Legally Blind, Hx Macular Degeneration, Hx Vision Problem, Hx Deafness, Hx Hearing Aid, Hx Hearing Problem, Other Sensory Impairments Opthamlomology History: Reports: Hx Cataracts - Surgery to remove cataracts, Hx Contacts or Glasses - for reading only Denies: Hx Eye Injury, Hx Eye Prosthesis, Hx Glaucoma, Hx Legally Blind, Hx Macular Degeneration, Hx Vision Problem, Other Sensory Impairments Neurological History: Reports: 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, Other Neuro Impairments/Disorders - autonomic neuropathy Denies: Hx Dementia, Hx Developmental Delay, Hx Headaches, Hx Migraine, Hx Nerve Disease, Hx Transient Ischemic Attacks (TIA) Psychiatric History: Reports: Hx Anxiety, Hx Depression, Hx Community Mental Health Tx Denies: Hx Panic Disorder - Cancer History Hx Chemotherapy: No Hx Radiation Therapy: No - Surgical History Surgery Procedure, Year, and Place: SEVERAL SX'S FOR SMALL BOWEL OBSTRUCTIONS, ADHESIONS, APPENDECTOMY; POWER PORT IN CHEST WALL -2009, replaced 2010 (still has); CATARACTS 2003; BIOPSY TEMPORAL ARTERY 2009; BREAST REDUCTION 2005; HYSTERECTOMY 1991;. [place]O OOPHERECTOMY 1999; CARDIAC CATHERIZATION 2008; URETHRAL SLING x3 AND RECTOCELE REPAIR 2007; COLECTOMY 11/2002 REVISION 02/2003; PANNUICULECTOMY WITH ABDOMINAL SCAR REVISION 2008; Placement of J-tube and lysis of adhesions Jun 12, 2016 @ [facility]; Late June J-tube infection and removal June 2016, @[facility] [place]; Interstim II Implant S-3 nerve stimulation 04/2008;removal of stim (10/14); Dupytrons Contracture R hand ; Hernia Repair with [place]-Davi ; Abdominal scar revision 10/13; Hx Anesthesia Reactions: No - Immunization History Date of Tetanus Vaccine: unknown Date of Influenza Vaccine: 2013 Infectious Disease History: No Infectious Disease History: Denies: Hx Clostridium Difficile, Hx Hepatitis, Hx Human Immunodeficiency Virus (HIV), Hx of Known/Suspected MRSA, Hx Shingles, Hx Tuberculosis, Hx Known/ Suspected VRE, Hx Known/Suspected VRSA, History Other Infectious Disease, Traveled Outside the [place] in Last 30 Days - Family History Known Family History: Positive: Other - mother - PE Negative: Diabetes - Social History Alcohol Use: None Hx Substance Use: No Substance Use Type: Reports: None Substance Use Comment - Amount & Last Used: PT STARTED WITHDRAWAL FROM OPIATES IN 2013 Hx Tobacco Use: No Smoking Status (MU): Never Smoked Tobacco Have You Smoked in the Last Year: No Review of Systems Negative: Fever Positive: Other - RUE pain All Other Systems Reviewed And Are Negative: Yes Physical Exam - Summary Physical Exam Summary: VITAL SIGNS: Reviewed. GENERAL: Patient is a well developed and nourished female who is lying comfortable in the stretcher. Patient is not in any acute respiratory distress. HEAD AND FACE: No signs of trauma. No ecchymosis, hematomas or skull depressions. No sinus tenderness. EYES: PERRLA, EOMI x 2, No injected conjunctiva, no nystagmus. No photophobia. EARS: Hearing grossly intact. Ear canals and tympanic membranes are within normal limits. MOUTH: Oropharynx within normal limits. NECK: Supple, trachea is midline, no adenopathy, no JVD, no carotid bruit, no c- spine tenderness, neck with full ROM. No meningeal signs, no Kernig's or brudzinskis signs. CHEST: Symmetric, no tenderness at palpation LUNGS: Clear to auscultation bilaterally. No wheezing or crackles. CVS: Regular rate and rhythm, S1 and S2 present, no murmurs or gallops appreciated. ABDOMEN: Soft, non-tender. No signs of distention. No rebound no guarding, and no masses palpated. Bowel sounds are normal. EXTREMITIES: FROM in all major joints, no edema, no cyanosis or clubbing. Right Picc line partially displaced. NEURO: Alert and oriented x 3. No acute neurological deficits. Speech is normal and follows commands. SKIN: Dry and warm Triage Information Reviewed: Yes Vital Signs On Initial Exam: Initial Vitals Temp Pulse Resp BP Pulse Ox 97.1 F 77 15 127/68 100 10/22/16 10:04 10/22/16 10:04 10/22/16 10:04 10/22/16 10:04 10/22/16 10:04 Vital Signs Reviewed: Yes Diagnostics - Vital Signs Vital Signs Temp Pulse Resp BP Pulse Ox 10/22/16 10:04 97.1 F 77 15 127/68 100 - Laboratory Lab Statement: Any lab studies that have been ordered have been reviewed, and results considered in the medical decision making process. - Ultrasound No standard instances Ultrasound Interpretation Completed By: Radiologist - VL Upper Ext Vein Doppler Rt: Normal examination. No evidence of deep venous thrombosis Re-Evaluation - Re-Evaluation First Eval Re-Evaluation Time: 13:17 Comment: PICC line was removed without any complications. Course/Dx - Course Assessment/Plan: Patient is a 66 year-old female coming to [facility] presenting with constant right shoulder and arm pain today. She states that she fell down the stairs and partially pulled out her PICC line. Furthermore, she states that her PCP referred her to the ED to rule out a blood clot in her RUE. She has no other complaints at this time. The PICC line was removed without complications. We did an US of the RUE and it shows no DVT. The patient was given [place] for the pain. At this point, I discussed my physical exam and test results with the patient, and the need to follow up with PCP was stressed. She understands and agrees. She is hemodynamically stable, A&Ox3. - Diagnoses Differential Diagnosis/HQI/PQRI: Positive: Bursitis, Strain, Sprain Provider Diagnoses: picc line disfunction - Physician Notifications Discussed Care Of Patient With: Dr. Caceres (IR) @ 1254: recommended to have PICC line removed. Discharge - Discharge Plan Condition: Stable Disposition: HOME Patient Education Materials: Peripherally Inserted Central Catheters and Midline Catheters (ED) Referrals: Mikala Calixto MD [Primary Care Provider] - The documentation as recorded by the Sj melchor Billy accurately reflects the service I personally performed and the decisions made by Arias beverly Walter, MD.
--- NOTE | 2016-10-23 08:51 | PN ---
Progress Note - Progress Note Note: Aerobic BC from 10/20/16 grew Staph. Epidermidis. I called the patient, who did not answer. I called her PCP, Dr. Navarro with [facility], and spoke with nursing. The patient is being seen today for f/u. I made nursing aware of my attempts and the culture results. She will make sure this is addressed at today's visit. Patient's vitals from 10/20/16 visit were stable and she was afebrile.
== END 2016-10-22 15:26 | disposition home or self-care (01) ==
LOC: ED 09:52
DX: T82.49XA Other complication of vascular dialysis catheter, initial encounter (principal); T88.8XXA Other specified complications of surgical and medical care, not elsewhere classified, initial encounter; Y92.9 Unspecified place or not applicable; Z86.74 Personal history of sudden cardiac arrest; F41.9 Anxiety disorder, unspecified; F32.9 Major depressive disorder, single episode, unspecified; W10.9XXA Fall (on) (from) unspecified stairs and steps, initial encounter; Z88.0 Allergy status to penicillin; Z88.5 Allergy status to narcotic agent
CPT/HCPCS: 99282

== ENCOUNTER 2017-01-01 16:25 | Emergency (ER) | payer MEDICARE ==
[2017-01-01] MEDS ORDERED: NS 0.9% 1000 ML* 2,000 ML IV ONE (16:49)
[2017-01-01] MEDS ORDERED: Ondansetron INJ* 2 MG/ML VIAL IV ONE ×2 (16:49→19:29)
[2017-01-01] MEDS ORDERED: fentaNYL* 50 MCG/ML 2 ML VIAL (100 MCG VIAL) IV SLOW PU ONE ×2 (16:50→19:29)
[2017-01-01 17:09] LABS: Hematocrit 33 % (35-47); Mean Corpuscular HGB Conc 34 g/dl (31-36); Mean Corpuscular Hemoglobin 28 pg (27-31); Mean Corpuscular Volume 82 fL (80-97); Mean Platelet Volume 9 um3 (7.4-10.4); Red Blood Count 3.98 10^6/ul (4.0-5.4); Red Cell Distribution Width 14 % (10.5-15); White Blood Count 4.3 10^3/ul (3.5-10.8)
[2017-01-01 17:23] LABS: ALT 18 U/L (7-52); AST 30 U/L (13-39); Albumin 3.8 g/dL (3.2-5.2); Alkaline Phosphatase 42 U/L (34-104); Anion Gap 4 mmol/L (2-11); BUN/Creatinine Ratio 15.3 (8-20); Blood Urea Nitrogen 13 mg/dL (6-24); C Reactive Protein < 1.00 mg/L (< 5.00); CO2 Carbon Dioxide 28 mmol/L (22-32); Chloride 102 mmol/L (101-111); EGFR African American 86.1 (>60); EGFR Non-African American 66.9 (>60); Globulin 4.5 g/dL (2-4); Glucose 93 mg/dL (70-100); Lipase 39 U/L (11.0-82.0); Potassium 3.7 mmol/L (3.5-5.0); Sodium 134 mmol/L (133-145); Total Protein 8.3 g/dL (6.4-8.9)
--- NOTE | 2017-01-01 17:26 | RAD ---
HISTORY: Abdominal pain, history of small bowel obstruction COMPARISONS: CT dated July 08, 2016 VIEWS: Frontal supine and upright views of the abdomen. FINDINGS: BOWEL: There is a nonspecific bowel gas pattern, with nondilated small bowel gas noted. There is a large amount of stool within the colon. CALCULI: There are no abnormal calculi. BONES AND SOFT TISSUES: Mild degenerative changes are noted OTHER FINDINGS: The lung bases are clear. There is no subphrenic gas. A hernia repair mesh is noted. IMPRESSION: NONSPECIFIC BOWEL GAS PATTERN. NO FREE INTRAPERITONEAL GAS.
[2017-01-01 17:36] LABS: Urine Bilirubin Negative (Negative); Urine Glucose Negative (Negative); Urine Nitrite Negative (Negative)
[2017-01-01] MEDS ORDERED: fentaNYL* 50 MCG/ML 2 ML VIAL (100 MCG VIAL) ONE (19:53)
[2017-01-01 21:23] VITALS: BP 137/70
--- NOTE | 2017-01-02 08:34 | ED ---
Sj Vallecillo Billy, scribed for Gion Arriaga MD on 01/01/17 at 1705 . Abdominal Pain/Female - HPI Summary HPI Summary: A 66 y/o female presents to the ED with LLQ abdominal pain since a couple of hours ago. Associated symptoms include nausea. The patient denies vomiting. The patient ate yogurt this morning. She states that pain is similar to her previous SBO. The patient has a Hx of multiple SBO. Extensive abdominal SHx. IVIG administered by a traveling nurses and two litters of IV fluids nightly. - History of Current Complaint Chief Complaint: EDAbdPain Stated Complaint: ABD PAIN/HX OF SMALL BOWEL OBSTRUCTION Time Seen by Provider: 01/01/17 16:38 Hx Obtained From: Patient Onset/Duration: Gradual Onset Timing: Hours Severity Initially: Moderate Severity Currently: Moderate Pain Intensity: 9 Pain Scale Used: 0-10 Numeric Location: Discrete At: LLQ Radiates: No Aggravating Factor(s): Nothing Alleviating Factor(s): Nothing Associated Signs and Symptoms: Positive: Nausea. Negative: Vomiting Allergies/Adverse Reactions: Allergies Allergy/AdvReac Type Severity Reaction Status Date / Time Penicillins Allergy Severe Hives Verified 01/01/17 16:32 Adhesive Tape Allergy Mild See Comment Verified 01/01/17 16:32 [Tegaderm Dressing] Bee Venom Allergy Anaphylatic Verified 01/01/17 16:32 Shock Milnacipran [From Savella] AdvReac Severe See Comment Verified 01/01/17 16:32 Morphine AdvReac Intermediate Hallucinati Verified 01/01/17 16:32 ons Nortriptyline AdvReac Unknown Unknown Verified 01/01/17 16:32 Reaction Details Pregabalin [From Lyrica] AdvReac Altered Verified 01/01/17 16:32 Mental Status Tapentadol [From Nucynta] AdvReac Agitation Verified 01/01/17 16:32 bee stings Allergy Severe Anaphylatic Uncoded 01/01/17 16:32 Shock adhesives Allergy Intermediate Rash Uncoded 01/01/17 16:32 PMH/Surg Hx/FS Hx/Imm Hx Endocrine/Hematology History: Denies: Hx Diabetes, Hx Anemia, Hx Unexplained Bleeding Cardiovascular History: Reports: Hx Cardiac Arrest - stopped breathing from IV pain medicine, Hx Hypercholesterolemia - not currently Denies: Hx Aneurysm, Hx Angina, Hx Angioplasty, Hx Auto Implanted Cardiovert Defib, Hx Cardiomegaly, Hx Congenital Heart Disease, Hx Congestive Heart Failure , Hx Coronary Artery Disease, Hx Deep Vein Thrombosis, Hx Embolism, Hx Hypotension, Hx Hypertension, Hx Myocardial Infarction, Hx Pacemaker/ICD, Hx Peripheral Vascular Disease, Hx Rheumatic Fever, Hx Syncope, Hx Valvular Heart Disease, Other Cardiovascular Problems/Disorders Respiratory History: Reports: Hx Sleep Apnea Denies: Hx Asthma, Hx Chronic Bronchitis, Hx Chronic Obstructive Pulmonary Disease (COPD), Hx Cystic Fibrosis, Hx Lung Cancer, Hx Pleural Effusion, Hx Pneumonia, Hx Pulmonary Edema, Hx Pulmonary Embolism, Hx Seasonal Allergies, Other Respiratory Problems/Disorders GI History: Reports: Hx Gastroesophageal Reflux Disease, Hx Gastrointestinal Bleed, Hx Hiatal Hernia, Hx Irritable Bowel, Hx Obstructive Bowel, Other GI Disorders - gastroparesis Denies: Hx Cirrhosis, Hx Crohn's Disease, Hx Diverticulosis, Hx Gall Bladder Disease, Hx Jaundice, Hx Ileostomy, Hx Pyloric Stenosis, Hx Ulcer History: Reports: Hx Kidney Infection - March 2013, Other Problems/ Disorders - frequent uti's Denies: Hx Dialysis, Hx Renal Disease Musculoskeletal History: Reports: Hx Back Problems, Hx Fibromyalgia, Hx Orthopedic Injury - mandible fracture Denies: Hx Arthritis, Hx Bursitis, Hx Congenital Bone Abnormalities, Hx Gout , Hx Osteoporosis, Hx Scoliosis, Hx Tendonitis, Other Musculoskeletal History Sensory History: Reports: Hx Cataracts - Surgery to remove cataracts, Hx Contacts or Glasses - for reading only Denies: Hx Eye Injury, Hx Eye Prosthesis, Hx Glaucoma, Hx Legally Blind, Hx Macular Degeneration, Hx Vision Problem, Hx Deafness, Hx Hearing Aid, Hx Hearing Problem, Other Sensory Impairments Opthamlomology History: Reports: Hx Cataracts - Surgery to remove cataracts, Hx Contacts or Glasses - for reading only Denies: Hx Eye Injury, Hx Eye Prosthesis, Hx Glaucoma, Hx Legally Blind, Hx Macular Degeneration, Hx Vision Problem, Other Sensory Impairments Neurological History: Reports: 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, Other Neuro Impairments/Disorders - autonomic neuropathy Denies: Hx Dementia, Hx Developmental Delay, Hx Headaches, Hx Migraine, Hx Nerve Disease, Hx Transient Ischemic Attacks (TIA) Psychiatric History: Reports: Hx Anxiety, Hx Depression, Hx Community Mental Health Tx Denies: Hx Panic Disorder - Cancer History Hx Chemotherapy: No Hx Radiation Therapy: No - Surgical History Surgery Procedure, Year, and Place: SEVERAL SX'S FOR SMALL BOWEL OBSTRUCTIONS, ADHESIONS, APPENDECTOMY; POWER PORT IN CHEST WALL -2009, replaced 2010 (still has); CATARACTS 2003; BIOPSY TEMPORAL ARTERY 2009; BREAST REDUCTION 2005; HYSTERECTOMY 1991;. [place] OOPHERECTOMY 1999; CARDIAC CATHERIZATION 2008; URETHRAL SLING x3 AND RECTOCELE REPAIR 2007; COLECTOMY 11/2002 REVISION 02/2003; PANNUICULECTOMY WITH ABDOMINAL SCAR REVISION 2008; Placement of J-tube and lysis of adhesions Jun 12, 2016 @ [facility]; Late June J-tube infection and removal June 2016, @[facility]; Interstim II Implant S-3 nerve stimulation 04/2008;removal of stim (10/14); Dupytrons Contracture R hand ; Hernia Repair with [place] ; Abdominal scar revision 10/13; Hx Anesthesia Reactions: No - Immunization History Date of Tetanus Vaccine: unknown Date of Influenza Vaccine: 2013 Infectious Disease History: No Infectious Disease History: Denies: Hx Clostridium Difficile, Hx Hepatitis, Hx Human Immunodeficiency Virus (HIV), Hx of Known/Suspected MRSA, Hx Shingles, Hx Tuberculosis, Hx Known/ Suspected VRE, Hx Known/Suspected VRSA, History Other Infectious Disease, Traveled Outside the [place] in Last 30 Days - Family History Known Family History: Positive: Other - mother - PE Negative: Diabetes - Social History Alcohol Use: None Hx Substance Use: No Substance Use Type: Reports: None Substance Use Comment - Amount & Last Used: PT STARTED WITHDRAWAL FROM OPIATES IN 2013 Hx Tobacco Use: No Smoking Status (MU): Never Smoked Tobacco Have You Smoked in the Last Year: No Review of Systems Negative: Fever Positive: Abdominal Pain, Nausea. Negative: Vomiting All Other Systems Reviewed And Are Negative: Yes Physical Exam Triage Information Reviewed: Yes Vital Signs On Initial Exam: Initial Vitals Temp Pulse Resp BP Pulse Ox 96.9 F 73 16 138/71 100 01/01/17 16:32 01/01/17 16:32 01/01/17 16:32 01/01/17 16:32 01/01/17 16:32 Vital Signs Reviewed: Yes Appearance: Positive: Well-Appearing, No Pain Distress Skin: Positive: Warm, Skin Color Reflects Adequate Perfusion, Dry Head/Face: Positive: Normal Head/Face Inspection Eyes: Positive: Normal ENT: Positive: Normal ENT inspection Neck: Positive: Supple, Nontender Respiratory/Lung Sounds: Positive: Clear to Auscultation Cardiovascular: Positive: RRR Abdomen Description: Positive: Soft, Other: - Diffusely tender. Musculoskeletal: Positive: Normal, Strength/ROM Intact Neurological: Positive: Normal, Sensory/Motor Intact, Alert, Oriented to Person Place, Time Psychiatric: Positive: Affect/Mood Appropriate AVPU Assessment: Alert Diagnostics - Vital Signs Vital Signs Temp Pulse Resp BP Pulse Ox 01/01/17 16:32 96.9 F 73 16 138/71 100 - Laboratory Lab Results: Lab Results 01/01/17 01/01/17 01/01/17 Range/Units 17:00 17:00 17:00 WBC 4.3 (3.5-10.8) 10^3/ul RBC 3.98 L (4.0-5.4) 10^6/ul Hgb 11.0 L (12.0-16.0) g/dl Hct 33 L (35-47) % MCV 82 (80-97) fL MCH 28 (27-31) pg MCHC 34 (31-36) g/dl RDW 14 (10.5-15) % Plt Count 199 (150-450) 10^3/ul MPV 9 (7.4-10.4) um3 Neut % (Auto) 64.1 (38-83) % Lymph % (Auto) 21.3 L (25-47) % [place] % (Auto) 10.6 H (1-9) % Eos % (Auto) 2.7 (0-6) % Baso % (Auto) 1.3 (0-2) % Absolute Neuts (auto) 2.8 (1.5-7.7) 10^3/ul Absolute Lymphs (auto) 0.9 L (1.0-4.8) 10^3/ul Absolute Monos (auto) 0.5 (0-0.8) 10^3/ul Absolute Eos (auto) 0.1 (0-0.6) 10^3/ul Absolute Basos (auto) 0.1 (0-0.2) 10^3/ul Absolute Nucleated RBC 0 10^3/ul Nucleated RBC % 0.1 Sodium 134 (133-145) mmol/L Potassium 3.7 (3.5-5.0) mmol/L Chloride 102 (101-111) mmol/L Carbon Dioxide 28 (22-32) mmol/L Anion Gap 4 (2-11) mmol/L BUN 13 (6-24) mg/dL Creatinine 0.85 (0.51-0.95) mg/dL Est GFR ( Amer) 86.1 (>60) Est GFR (Non-Af Amer) 66.9 (>60) BUN/Creatinine Ratio 15.3 (8-20) Glucose 93 (70-100) mg/dL Lactic Acid 0.3 L (0.5-2.0) mmol/L Calcium 9.0 (8.6-10.3) mg/dL Total Bilirubin 0.30 (0.2-1.0) mg/dL AST 30 (13-39) U/L ALT 18 (7-52) U/L Alkaline Phosphatase 42 (34-104) U/L C-Reactive Protein < 1.00 (< 5.00) mg/L Total Protein 8.3 (6.4-8.9) g/dL Albumin 3.8 (3.2-5.2) g/dL Globulin 4.5 H (2-4) g/dL Albumin/Globulin Ratio 0.8 L (1-3) Lipase 39 (11.0-82.0) U/L Urine Color Urine Appearance Urine pH (5-9) Ur Specific [place] (1.010-1.030) Urine Protein (Negative) Urine Ketones (Negative) Urine Blood (Negative) Urine Nitrate (Negative) Urine Bilirubin (Negative) Urine Urobilinogen (Negative) Ur Leukocyte Esterase (Negative) Urine Glucose (Negative) 01/01/17 Range/Units 17:21 WBC (3.5-10.8) 10^3/ul RBC (4.0-5.4) 10^6/ul Hgb (12.0-16.0) g/dl Hct (35-47) % MCV (80-97) fL MCH (27-31) pg MCHC (31-36) g/dl RDW (10.5-15) % Plt Count (150-450) 10^3/ul MPV (7.4-10.4) um3 Neut % (Auto) (38-83) % Lymph % (Auto) (25-47) % [place] % (Auto) (1-9) % Eos % (Auto) (0-6) % Baso % (Auto) (0-2) % Absolute Neuts (auto) (1.5-7.7) 10^3/ul Absolute Lymphs (auto) (1.0-4.8) 10^3/ul Absolute Monos (auto) (0-0.8) 10^3/ul Absolute Eos (auto) (0-0.6) 10^3/ul Absolute Basos (auto) (0-0.2) 10^3/ul Absolute Nucleated RBC 10^3/ul Nucleated RBC % Sodium (133-145) mmol/L Potassium (3.5-5.0) mmol/L Chloride (101-111) mmol/L Carbon Dioxide (22-32) mmol/L Anion Gap (2-11) mmol/L BUN (6-24) mg/dL Creatinine (0.51-0.95) mg/dL Est GFR ( Amer) (>60) Est GFR (Non-Af Amer) (>60) BUN/Creatinine Ratio (8-20) Glucose (70-100) mg/dL Lactic Acid (0.5-2.0) mmol/L Calcium (8.6-10.3) mg/dL Total Bilirubin (0.2-1.0) mg/dL AST (13-39) U/L ALT (7-52) U/L Alkaline Phosphatase (34-104) U/L C-Reactive Protein (< 5.00) mg/L Total Protein (6.4-8.9) g/dL Albumin (3.2-5.2) g/dL Globulin (2-4) g/dL Albumin/Globulin Ratio (1-3) Lipase (11.0-82.0) U/L Urine Color Straw Urine Appearance Clear Urine pH 8.0 (5-9) Ur Specific [place] 1.005 L (1.010-1.030) Urine Protein Negative (Negative) Urine Ketones Negative (Negative) Urine Blood Negative (Negative) Urine Nitrate Negative (Negative) Urine Bilirubin Negative (Negative) Urine Urobilinogen Negative (Negative) Ur Leukocyte Esterase Negative (Negative) Urine Glucose Negative (Negative) Result Diagrams: 01/01/17 17:00 01/01/17 17:00 Lab Statement: Any lab studies that have been ordered have been reviewed, and results considered in the medical decision making process. - Radiology abd xray Radiology Interpretation Completed By: Radiologist - NONSPECIFIC BOWEL GAS PATTERN. NO FREE INTRAPERITONEAL GAS. Re-Evaluation - Re-Evaluation First Eval Re-Evaluation Time: 19:26 Change: Improved Abdominal Pain Fem Course/Dx - Diagnoses Provider Diagnoses: Abdominal pain Discharge - Discharge Plan Condition: Stable Disposition: HOME Patient Education Materials: Abdominal Pain (ED) Referrals: Mikala Calixto MD [Primary Care Provider] - The documentation as recorded by the Sj melchor Billy accurately reflects the service I personally performed and the decisions made by Bart beverly Richard L, MD.
== END 2017-01-01 21:21 | disposition home or self-care (01) ==
LOC: ED 16:25
DX: R10.32 Left lower quadrant pain (principal); R11.0 Nausea
CPT/HCPCS: 36415; 74020; 80053; 81003; 83605; 83690; 85025; 86140; 96374; 99282; J2405; J3010

== ENCOUNTER 2017-04-21 14:30 | Observation (INO) | payer MEDICARE ==
[2017-04-21] MEDS ORDERED: Aspirin TAB* 325 MG PO ONE (15:26)
[2017-04-21 15:27] LABS: Hematocrit 38 % (35-47); Hemoglobin 12.7 g/dl (12.0-16.0); Mean Corpuscular HGB Conc 33 g/dl (31-36); Mean Corpuscular Hemoglobin 29 pg (27-31); Mean Corpuscular Volume 87 fL (80-97); Mean Platelet Volume 9 um3 (7.4-10.4); Red Cell Distribution Width 14 % (10.5-15); White Blood Count 4.2 10^3/ul (3.5-10.8)
--- NOTE | 2017-04-21 15:42 | RAD ---
Indication: Shortness of breath. Single frontal view of the chest performed at 1535 hours was reviewed. Comparison is made with previous exam dated October 20, 2016. No mediastinal shift is noted. Heart is of normal size and configuration. Lung griggs appear clear. Central venous catheter remains in place. IMPRESSION: NO ACTIVE CARDIOPULMONARY DISEASE IS NOTED.
[2017-04-21 15:43] LABS: ALT 18 U/L (7-52); Alkaline Phosphatase 35 U/L (34-104); Anion Gap 3 mmol/L (2-11); BUN/Creatinine Ratio 17.5 (8-20); Blood Urea Nitrogen 14 mg/dL (6-24); CO2 Carbon Dioxide 26 mmol/L (22-32); Chloride 100 mmol/L (101-111); EGFR Non-African American 71.5 (>60); Globulin 4.4 g/dL (2-4); Glucose 101 mg/dL (70-100); Sodium 129 mmol/L (133-145); Total Protein 8.4 g/dL (6.4-8.9)
[2017-04-21] MEDS ORDERED: Iohexol 350* (CONTRAST) 500 ML MDV IV ONE (16:12)
--- NOTE | 2017-04-21 16:27 | RAD ---
HISTORY: Dizziness, vertigo COMPARISONS: MRI dated July 29, 2013 TECHNIQUE: Multiple contiguous axial CT scans were obtained of the head without intravenous contrast. FINDINGS: HEMORRHAGE/INFARCT: There is no hemorrhage or acute infarct. MASSES/SHIFT: There is no mass or shift. EXTRA-AXIAL SPACES: There are no extra-axial fluid collections. SULCI AND VENTRICLES: The sulci and ventricles are normal in size and position for the patient's stated age. CEREBRUM: There are no focal parenchymal abnormalities. BRAINSTEM: There are no focal parenchymal abnormalities. CEREBELLUM: There are no focal parenchymal abnormalities. VESSELS: The vessels are grossly normal. PARANASAL SINUSES: The paranasal sinuses are clear. ORBITS: The orbits are unremarkable. BONES AND SOFT TISSUE: No bone or soft tissue abnormalities are noted. OTHER: None IMPRESSION: NO ACUTE INTRACRANIAL PATHOLOGY.
--- NOTE | 2017-04-21 17:00 | RAD ---
HISTORY: Shortness of breath, elevated d-dimer COMPARISONS: January 29, 2017 TECHNIQUE: Multiple contiguous axial CT scans of the chest were obtained after the administration of nonionic intravenous contrast, timed to the pulmonary arterial phase of contrast enhancement.. Coronal and sagittal multiplanar reformations are also submitted for review. FINDINGS: NECK AND THYROID: The lower neck and thyroid are unremarkable. CHEST WALL: There is no lower cervical, axillary, or supraclavicular lymphadenopathy by size criteria. HEART AND PERICARDIUM: The heart is unremarkable. AORTA AND PULMONARY VASCULATURE: There is no pulmonary arterial filling defect to suggest pulmonary embolism. There is no linear filling defect within the aorta to suggest aortic dissection. MEDIASTINUM: There is no mediastinal lymphadenopathy by size criteria. RUDDY: There is no hilar lymphadenopathy by size criteria. AIRWAY AND ESOPHAGUS: The airway is unremarkable, without endobronchial filling defect. The esophagus is grossly normal. LUNG PARENCHYMA: There are stable scattered small lung nodules, the largest noted in the right middle lobe. PLEURA: No pleural abnormalities are noted. UPPER ABDOMEN: The upper abdomen is unremarkable. BONES AND SOFT TISSUES: Mild degenerative changes are noted OTHER: None. IMPRESSION: 1. NO PULMONARY ARTERIAL FILLING DEFECTS TO SUGGEST PULMONARY WAS. 2. STABLE SCATTERED PULMONARY NODULES DESCRIBED ON PREVIOUS CT EXAMINATIONS, WITH FOLLOW-UP RECOMMENDED ON THE PREVIOUS EXAMINATIONS
[2017-04-21 20:08] LABS: Urine Bilirubin Negative (Negative); Urine Glucose Negative (Negative); Urine Nitrite Negative (Negative)
[2017-04-21] MEDS: NS 0.9% 1000 ML* 2,000 ML IV ONE (20:52)
[2017-04-21] MEDS ORDERED: Citalopram TAB* 20 MG PO SCH (21:00)
[2017-04-21] MEDS ORDERED: Atorvastatin* 10 MG TAB PO SCH (21:30)
--- NOTE | 2017-04-21 21:34 | HP ---
CC: Mikala Navarro MD* HISTORY AND PHYSICAL: DATE OF ADMISSION: 04/21/17 PRIMARY CARE PHYSICIAN: Mikala Navarro MD. CHIEF COMPLAINT: Exertional chest heaviness, palpitations, shortness of breath. HISTORY OF PRESENT ILLNESS: Ms. 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 The patient states yesterday she was in her usual state of health, woke up this morning and went to run some errands. When she came home, she was carrying a number of bags into the house and prior to getting to the house, she began to feel lightheaded, felt like she was having palpitations and chest heaviness and associated shortness of breath and diaphoresis. She sat on the steps. Her came out at that time to help her. He stated that she had her head between her knees and it took her several minutes to recover. They brought her into the couch to lie down for a while. She dozed off for about an hour. When she woke up, her symptoms persisted. She states she had a similar episode a few weeks ago and Dr. Navarro said that if they recur, she should go to the hospital for further evaluation. She has no associated nausea or vomiting, previously had felt well. No recent fever or chills. No change in her chronic abdominal pain or diarrhea. No dysuria. In addition to the episode a few weeks ago, she states this has happened to her in the past, although rarely and this seemed to be more intense than usual. She states that her symptoms persisted while here in the hospital, seemed to get worse when she got IV contrast for her CTA and for the most part have resolved since then. The patient has a history of orthostatic hypotension. She states she is very sensitive to the heat and often feels lightheaded when exposed to heat for a prolonged amount of time. She felt like perhaps she overexerted herself yesterday and she had nothing to eat or drink this morning prior to running her errands, which is not unusual for her. Of note, the patient is on IVIG at home which she gets once a week and she also infuses 2 L of normal saline nightly at home for 12 hours. Due to her presentation, hospitalist service was called to consider the patient for admission. PAST MEDICAL HISTORY: 1. Autoimmune autonomic neuropathy with gastroparesis on IVIG. 2. Hyperlipidemia. 3. PMR. 4. Ischemic bowel, recurrent SBOs. 5. Depression. 6. Orthostatic hypotension. PAST SURGICAL HISTORY: 1. J-tube placement, 2015. 2. PowerPort placement, 2010. 3. Temporal artery biopsy ,2009. 4. Panniculectomy with abdominal scar revision, 2008. 5. Urethral sling and rectocele repair, 2007. 6. Bilateral breast reduction in, 2005. 7. Bilateral cataract repair, 2003. 8. Post colectomy in 2002 with resection, 2003. 9. Status post hysterectomy, 1991. 10. Status post salpingo-oophorectomy, 1999. HOME MEDICATIONS: 1. Fentanyl patch 12.5 and 25 mcg transdermal every 72 hours. 2. Percocet 5/325 one tablet by mouth every 6 hours as needed for pain. 3. IVIG every 7 days. 4. Progesterone 100 mg by mouth at bedtime. 5. Citalopram 20 mg by mouth at bedtime. 6. Esomeprazole 40 mg by mouth daily. 7. Atorvastatin 10 mg by mouth nightly. 8. Aspirin 81 mg by mouth daily. 9. Estradiol 1 patch transdermal twice weekly. FAMILY HISTORY: Significant for mother with [place], father with leukemia. SOCIAL HISTORY: The patient reports a very brief smoking history when she was a teenager. Denies any alcohol or illicit drug use. Lives at home with her . PHYSICAL EXAMINATION GENERAL: The patient is a middle-aged female, appears older than stated age, lying in bed, in no apparent distress. VITAL SIGNS: On admission, temperature 97.9, heart rate of 83, respiratory rate 19, O2 sat is 100% on room air, blood pressure 149/74. HEENT: Normocephalic, atraumatic. Eyes: Pupils equal, round and reactive to light and accommodation. Anicteric sclerae. ENT: Moist mucous membranes. No cervical adenopathy. LUNGS: Clear to auscultation bilaterally. No wheezes, rales, or rhonchi. CARDIOVASCULAR: Regular rate and rhythm. S1 and S2 present. No murmurs, gallops, or rubs. ABDOMEN: Soft, nondistended. Mildly tender to palpation diffusely, which is baseline for the patient. Numerous surgical scars. Fentanyl patch is in place. EXTREMITIES: No cyanosis, clubbing, or edema. NEUROLOGIC: The patient is alert and oriented x3. No focal neurological deficits. LABORATORY DATA/DIAGNOSTICS: White blood cell count of 4.2, hematocrit of 38, platelets 228. D-dimer of 240. Sodium 129, potassium 3.8, chloride of 100, carbon dioxide of 26, BUN of 14, creatinine 0.8, glucose of 101. Lactic acid of 0.8. LFTs within normal limits. Troponin 0.00. EKG, personally reviewed shows normal sinus rhythm. Chest x-ray, personally reviewed shows no acute disease. CT of the brain shows no acute disease. CTA of the chest showed no evidence of PE. Pulmonary nodules were present which were chronic. She would have followup as recommended on previous imaging. ASSESSMENT AND PLAN: Exertional chest discomfort with associated shortness of breath, lightheadedness and palpitations in a 67-year-old female with a complicated past medical history. 1. Exertional chest discomfort. This was associated with lightheadedness and palpitations. The patient has an initial normal EKG and negative troponin. We will continue to trend these overnight. Monitor the patient on telemetry. The patient's last stress test was about 2 years ago. We will get a chemical nuclear stress test in the morning. The patient does have a history of orthostatic hypotension. We will check her pressures here. If her cardiac workup is negative, I think this is most likely due to over exertion, exposure to the heat, and dehydration as the patient has some autonomic dysfunction. Continue the patient on home aspirin and statin for now. 2. Autoimmune autonomic neuropathy with gastroparesis and chronic pain. The patient is on liquid IVIG at home. We will give her IV fluids overnight as she usually gets at home. Continue home fentanyl patch and p.r.n. oxycodone. 3. Hyperlipidemia. Continue atorvastatin. 4. Gastroesophageal reflux disease. Continue Nexium. 5. Depression. Continue citalopram. 6. DVT prophylaxis, SCDs. 7. The patient is a full code. TIME SPENT: Total time spent on this admission 45 minutes with over half the time spent [id number] with the patient in counseling and coordinating care. [id number]/[facility] #: [id number] [facility]
[2017-04-21] MEDS ORDERED: fentaNYL PATCH 25 MCG/HR TRANSDERM SCH (22:00)
[2017-04-21] MEDS ORDERED: fentaNYL PATCH 12 MCG/HR TRANSDERM SCH (22:00)
[2017-04-21] MEDS: oxyCODONE/Acetamin 5/325 MG* TAB PO PRN (22:55)
[2017-04-21] MEDS ORDERED: [UNRECOGNIZED DRUG - OTHER] TRANSDERM SCH (23:00)
[2017-04-21] MEDS ORDERED: ESTRADIOL TRANSDERM SCH (23:00)
[2017-04-22] MEDS: NS 0.9% 1000 ML* 2,000 ML IV ONE (04:12)
[2017-04-22 06:35] LABS: BUN/Creatinine Ratio 20.6 (8-20); Calcium 8.3 mg/dL (8.6-10.3); EGFR African American 121.2 (>60); EGFR Non-African American 94.3 (>60); Potassium 3.7 mmol/L (3.5-5.0)
[2017-04-22] MEDS ORDERED: fentaNYL Patch Check Q Shift 1 NOTE SCH (07:00)
[2017-04-22] MEDS ORDERED: Ondansetron INJ* 2 MG/ML VIAL IV PRN (08:05)
[2017-04-22] MEDS ORDERED: Aspirin EC Low Dose* 81 MG TAB.EC PO SCH (09:00)
[2017-04-22] MEDS ORDERED: Omeprazole CAP* 20 MG PO SCH (09:00)
[2017-04-22 09:20] VITALS: BP 118/66
[2017-04-22] MEDS: oxyCODONE/Acetamin 5/325 MG* TAB PO PRN (10:37)
[2017-04-22] MEDS ORDERED: Regadenoson* 0.4 MG/5 ML SYRINGE ONE (12:09)
[2017-04-22] MEDS ORDERED: Aminophylline IV* 25 MG/ML 10 ML VIAL ONE (12:43)
--- NOTE | 2017-04-22 13:44 | RAD ---
Edited for charges. Indication: Chest discomfort. Myocardial perfusion scan was performed utilizing 1 day protocol. Rest myocardial perfusion was performed after intravenous injection of 10.24 mCi of technetium 99m tetrofosmin. Pharmacological stress was applied and 26.2 mCi of technetium 99m tetrofosmin was injected for the stress portion of the study. There is homogeneous distribution of the radiotracer throughout the left ventricle. There is no definite fixed or reversible perfusion defect identified. The ejection fraction at stress is 67%. Evaluation of wall motion demonstrates no focal wall motion abnormality. IMPRESSION: No evidence of fixed or reversible perfusion defect is identified. ASSESSMENT: Low risk Based on imaging criteria from ACC/AHA 2002 Guideline Update for the Management of Patients With Chronic Stable Angina Table 23. Noninvasive Risk Stratification. Reference. MTDD
== END 2017-04-22 15:46 | disposition home or self-care (01) ==
LOC: ED 14:30 → MEDTELE 18:12
PROVIDERS: ADMIT Hospitalist; ATTEND Internal Medicine
DX: R07.9 Chest pain, unspecified (principal); R06.02 Shortness of breath; R00.1 Bradycardia, unspecified; G90.8 Other disorders of autonomic nervous system; M35.3 Polymyalgia rheumatica; F32.9 Major depressive disorder, single episode, unspecified; K55.1 Chronic vascular disorders of intestine; I95.1 Orthostatic hypotension; K31.84 Gastroparesis; Z79.899 Other long term (current) drug therapy; Z79.82 Long term (current) use of aspirin; Z87.891 Personal history of nicotine dependence
CPT/HCPCS: 36415; 70450; 71010; 71275; 78452; 80048; 80053; 81003; 83605; 84484; 85025; 85379; 87040; 93005; 93017; 96361; 96374; 99285; A9270-GY; A9502; G0378; J0280; J2405; J2785; Q9967